=== PATIENT | female | born 1980 | race Caucasian/White ===

== ENCOUNTER → 2017-05-31 | Outpatient (REF) ==
[~2017-05-31] MED LIST: LEVOTHYROXIN0.075 MG PO; LEVOTHYROXINE0.05 M1 PO; PRENATAL1 TA1 PO
[2017-05-31 15:29] LABS: THYROID STIMULATING HORMONE 2.6 uIU/mL (0.465-4.680)
== END ==
LOC: ZLAB.WCH 14:38
PROVIDERS: Family Medicine
DX: Z01.89 Encounter for other specified special examinations (principal)

== ENCOUNTER → 2018-05-21 | Outpatient (REF) ==
[2018-05-21 18:34] LABS: THYROID STIMULATING HORMONE 2.37 uIU/mL (0.465-4.680)
== END ==
LOC: ZLAB.WCH 16:34
PROVIDERS: Family Medicine
DX: Z01.89 Encounter for other specified special examinations (principal)